=== PATIENT | female | born 1955 | race Caucasian/White ===

== ENCOUNTER 2017-08-15 02:42 | Outpatient (CLI) | payer SELFPAY ==
[2017-08-15 08:11] LABS: HEMOGLOBIN A1C 5.8 % (4.5-6.2)
[2017-08-15 08:26] LABS: CHOL/HDL RATIO 4.82 (0.00-4.99)
== END 2017-08-15 23:59 | disposition home or self-care (01) ==
LOC: HW HEART 02:42
DX: Z13.6 Encounter for screening for cardiovascular disorders (principal)
CPT/HCPCS: 36415

== ENCOUNTER 2018-05-02 07:40 | Day surgery (SDC) | payer MEDICAID ==
[2018-04-29 14:00] LABS: BASOPHILS % (AUTO) 0.7 % (0-1); EOSINOPHILS # (AUTO) 0.1 X10'3 (0-0.9); EOSINOPHILS % (AUTO) 1.5 % (0-6); LYMPHOCYTES # (AUTO) 2.3 X10'3 (1.1-4.8); LYMPHOCYTES % (AUTO) 35.9 % (21-51); MEAN CORPUSCULAR HEMOGLOBIN 29.3 PG (27.0-31.0); MEAN CORPUSCULAR HGB CONC 33.8 g/dL (33.0-36.5); MEAN CORPUSCULAR VOLUME 86.9 FL (78-98); MONOCYTES # (AUTO) 0.5 X10'3 (0-0.9); MONOCYTES % (AUTO) 7.1 % (2-12); NEUTROPHILS # (AUTO) 3.5 X10'3 (1.8-7.7); NEUTROPHILS % (AUTO) 54.8 % (42-75); PRE OP HEMATOCRIT 39.1 % (35.0-45.0); PRE OP HEMOGLOBIN 13.2 g/dL (12.0-16.0); PRE OP PLATELET COUNT 268 X10'3 (140-440); RED CELL DISTRIBUTION WIDTH 13.9 % (11.5-14.5)
[2018-04-29 14:13] LABS: ALBUMIN 3.8 G/DL (3.4-5.0); ALKALINE PHOSPHATASE 89 IU/L (46-116); BLOOD UREA NITROGEN 14 MG/DL (7-18); BUN/CREATININE RATIO 24.6 (6.6-38.0); CALCIUM 9.5 MG/DL (8.5-10.1); CHLORIDE 104 MMOL/L (99-107); CREATININE 0.57 MG/DL (0.40-0.90); PRE OP ALT 27 U/L (30-65); PRE OP ANION GAP 8 (8-16); PRE OP AST 19 U/L (10-37); PRE OP BILIRUB, TOTAL 0.3 MG/DL (0.0-1.0); PRE OP GLUCOSE 81 MG/DL (70-104); PRE OP POTASSIUM 3.7 MMOL/L (3.4-5.1); PRE OP SODIUM 140 MMOL/L (135-145); TOTAL CARBON DIOXIDE 27.8 MMOL/L (24-32); TOTAL PROTEIN 7.5 G/DL (6.4-8.2); eGFR > 90 ML/MIN
[2018-05-02] VITALS (10 sets, daily range): BP systolic 121–141; BP diastolic 61–88
[~2018-05-02] VITALS: Ht 154.3 cm; Wt 98.0 kg
[~2018-05-02 07:40] MED LIST: BUPIVAcaine/PF 2.5mg/ml (0.25%) 10ml vial ONE; NO HOME MEDS; clindamycin 600mg/D5W 50ml 50 ML IV ONE; famotidine 20mg tablet PO ONE; ringers solution, lacted 1,000 ML IV SCH
[2018-05-02] MEDS ORDERED: ringers solution, lacted 1,000 ML IV SCH (08:32)
[2018-05-02] MEDS ORDERED: ondansetron/PF 4mg/2ml inj IV PRN (08:35)
[2018-05-02] MEDS ORDERED: meperidine/PF 25mg/ml syringe IV PRN ×3 (08:35)
[2018-05-02] MEDS ORDERED: morphine 4 MG/ML inj SYRINge IV PRN ×2 (08:35)
[2018-05-02] MEDS ORDERED: proCHLORperazine 10 MG/2 ml inj IV PRN (08:35)
[2018-05-02] MEDS ORDERED: fentaNYL/PF 50MCG/1 ML 2ML syringe ONE (09:07)
[2018-05-02] MEDS ORDERED: midazolam 2 mg/2 ml injection ONE ×2 (09:08→09:18)
[2018-05-02] MEDS ORDERED: ketorolac trometh. 30mg/ml inj. ONE (09:08)
--- NOTE | 2018-05-02 09:33 | NUR ---
Received from OR via BED, accompanied by Anesthesiologist DR COLLINS and report given by Anesthesiologist. 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 Addendum: 05/02/18 at 0945 by Judy Verde RN Amended: Links added.
== END 2018-05-02 11:33 | disposition home or self-care (01) ==
LOC: PAS 07:40
PROVIDERS: ATTEND Orthopaedic Surgery Hand Surgery
DX: G56.03 Carpal tunnel syndrome, bilateral upper limbs (principal); E66.9 Obesity, unspecified; Z88.0 Allergy status to penicillin; Z88.8 Allergy status to other drugs, medicaments and biological substances; Z72.89 Other problems related to lifestyle; Z79.899 Other long term (current) drug therapy; Z87.891 Personal history of nicotine dependence
CPT/HCPCS: 36415; 64721; 80053; 82948; 85025; 93005; A6222; A6449; J1885; J2250; J3010; J3490; J7120

== ENCOUNTER 2022-11-03 09:10 | Emergency (ER) | payer MEDICARE, MEDICAID ==
[~2022-11-03] VITALS: Ht 160 cm; Wt 125.0 kg
[~2022-11-03 09:10] MED LIST changes: -BUPIVAcaine/PF 2.5mg/ml (0.25%) 10ml vial ONE; -clindamycin 600mg/D5W 50ml 50 ML IV ONE; -famotidine 20mg tablet PO ONE; -ringers solution, lacted 1,000 ML IV SCH
[2022-11-03 09:13] VITALS: BP 169/81; PULSE 76; RESP 16; TEMP 97.9; O2SAT 98
[2022-11-03] MEDS ORDERED: NAPR-56 PO (12:23)
== END 2022-11-03 12:37 | disposition home or self-care (01) ==
LOC: ER 09:12
DX: S43.491A Other sprain of right shoulder joint, initial encounter (principal); X58.XXXA Exposure to other specified factors, initial encounter; Y93.89 Activity, other specified; Y92.89 Other specified places as the place of occurrence of the external cause; Y99.8 Other external cause status
CPT/HCPCS: 73060; 99284; A4565

== ENCOUNTER 2024-06-30 09:09 | Outpatient (CLI) | payer MEDICARE, MEDICAID ==
--- NOTE | 2024-06-30 10:39 | RADIOLOGY REPORT ---
MRI BRAIN WITHOUT CONTRAST CLINICAL HISTORY: DIZZINESS AND GIDDINESS TECHNIQUE: Multiplanar, multisequence MR images of the brain without intravenous contrast. Comparison: None FINDINGS: There is no restricted diffusion. There are mild scattered chronic small-vessel ischemic changes in t he supratentorial white matter. There is no evidence of hemorrhage, mass, mass effect or midline shif t. There is no hydrocephalus or extra-axial fluid collection. The visualized intracranial vasculature demonstrates appropriate flow-voids. The sagittal midline structures appear unremarkable. The cranio cervical junction is within normal limits. The calvarium demonstrates normal marrow signal. There is small amount of fluid in the right mastoid air cells. Left mastoid air cells are clear. There is muc osal thickening and likely secretions filling the left maxillary sinus. IMPRESSION: 1. There is no acute intracranial process. 2. Chronic left maxillary sinus disease. 3. Small amount of fluid in the right mastoid air cells. HS:Y
== END 2024-06-30 23:59 | disposition home or self-care (01) ==
LOC: MRI02 09:09
PROVIDERS: ATTEND Student in an Organized Health Care Education/Training Program
DX: I67.82 Cerebral ischemia (principal); R42 Dizziness and giddiness
CPT/HCPCS: 70551